=== PATIENT | male | born 1930 | race Caucasian/White ===

== ENCOUNTER 2016-03-06 20:28 | Inpatient (IN) | payer MEDICARE, BC ==
[~2016-03-06] VITALS: Ht 175.3 cm; Wt 108.8 kg
[2016-03-06] MEDS ORDERED: MORPHINE 4 MG/ML SYR ONE (22:46)
[2016-03-06] MEDS ORDERED: DUONEB INH ONE (23:03)
[2016-03-06] MEDS ORDERED: BISACODYL EC 5 MG TAB PO PRN (23:25)
[2016-03-06] MEDS ORDERED: ACETAMINOPHEN 325 MG TAB PO PRN (23:25)
[2016-03-06] MEDS ORDERED: GLUCAGON 1 MG VIAL IM PRN (23:25)
[2016-03-06] MEDS ORDERED: MAG HYDROX 30 ML UDC PO PRN (23:25)
[2016-03-06] MEDS ORDERED: ALU/MAG/SIM 30 ML UDC PO PRN (23:25)
[2016-03-06] MEDS ORDERED: BISACODYL 10 MG SUPP RECTAL PRN (23:25)
[2016-03-06] MEDS ORDERED: SALINE FLUSH 10 ML FLUSH PRN (23:25)
[2016-03-06] MEDS ORDERED: DEXTROSE 50% SYRINGE 50 ML IV PRN (23:25)
[2016-03-06] MEDS ORDERED: CEFTRIAXONE 1 GM VIAL ONE (23:35)
[2016-03-06] MEDS ORDERED: SODIUM CHLORIDE 0.9% 100 ML IV ONE (23:35)
[2016-03-06] MEDS ORDERED: Rivaroxaban 15 MG TAB PO ONE (23:40)
[2016-03-06] MEDS ORDERED: PHARMACY TO DOSE VANCOMYCIN IV SCH (23:50)
[2016-03-07] VITALS (10 sets, daily range): BP systolic 112–141; RESP 16–20; TEMP 97.3–99.5; Ht 175.3 cm; Wt 108.8 kg
[2016-03-07] MEDS: VANCOMYCIN 1,250 MG in SODIUM CHLORIDE 0.9% 250 ML IV SCH ×2 (01:37→14:04)
[2016-03-07] MEDS: SODIUM CHLORIDE 0.9% FLUSH BAG 500 ML IV SCH (01:38)
[2016-03-07] MEDS ORDERED: MISSING DOSE XX ONE ×2 (02:20→17:25)
[2016-03-07] MEDS: PIPERACIL/TAZO 3.375GM/50ML 50 ML IV SCH ×5 (04:17→23:22)
[2016-03-07] MEDS ORDERED: GLUCAGON 1 MG VIAL IM PRN (07:30)
[2016-03-07] MEDS ORDERED: DEXTROSE 50% SYRINGE 50 ML IV PRN (07:30)
[2016-03-07] MEDS: FLINTSTONES COMPLETE PO SCH (08:04)
[2016-03-07] MEDS: Finasteride 5 MG TAB PO SCH (08:04)
[2016-03-07] MEDS: LEVOTHYROXINE 0.1 MG TAB PO SCH (08:05)
[2016-03-07] MEDS: DOCUSATE SOD 100 MG CAP PO SCH ×2 (08:05→20:44)
[2016-03-07] MEDS: SALINE FLUSH 10 ML FLUSH SCH ×2 (08:07→20:45)
[2016-03-07] MEDS ORDERED: ENOXAPARIN 40 MG/0.4 ML SYR SUBQ SCH (09:00)
[2016-03-07] MEDS ORDERED: PHARMACY TO DOSE XX SCH (15:35)
[2016-03-07] MEDS ORDERED: ENOXAPARIN 100 MG/ML MDV SUBQ SCH (16:00)
[2016-03-07] MEDS ORDERED: ENOXAPARIN 100 MG/ML SYR SUBQ SCH (16:00)
[2016-03-07] MEDS ORDERED: Hydrocodone/APAP 10/325 MG TAB PO ONE (20:10)
[2016-03-07] MEDS: DOXAZOSIN 1 MG TAB PO SCH (20:44)
[2016-03-08] VITALS (8 sets, daily range): BP systolic 113–141; RESP 18–24; TEMP 97.6–98.7
[2016-03-08] MEDS: VANCOMYCIN 1,250 MG in SODIUM CHLORIDE 0.9% 250 ML IV SCH ×2 (00:56→13:22)
[2016-03-08] MEDS: SODIUM CHLORIDE 0.9% FLUSH BAG 500 ML IV SCH (05:14)
[2016-03-08] MEDS: LEVOTHYROXINE 0.1 MG TAB PO SCH (06:07)
[2016-03-08] MEDS: PIPERACIL/TAZO 3.375GM/50ML 50 ML IV SCH ×3 (06:08→18:14)
[2016-03-08] MEDS: SALINE FLUSH 10 ML FLUSH SCH ×2 (09:23→20:12)
[2016-03-08] MEDS: Finasteride 5 MG TAB PO SCH (09:24)
[2016-03-08] MEDS: FLINTSTONES COMPLETE PO SCH (09:24)
[2016-03-08] MEDS: DOCUSATE SOD 100 MG CAP PO SCH ×2 (09:25→20:11)
[2016-03-08] MEDS: ENOXAPARIN 100 MG/ML SYR SUBQ SCH ×2 (09:26→20:12)
[2016-03-08] MEDS: DOXAZOSIN 1 MG TAB PO SCH (20:10)
[2016-03-09] MEDS: PIPERACIL/TAZO 3.375GM/50ML 50 ML IV SCH ×4 (01:08→17:00)
[2016-03-09] MEDS: VANCOMYCIN 1,250 MG in SODIUM CHLORIDE 0.9% 250 ML IV SCH ×2 (01:57→12:00)
[2016-03-09 02:29] VITALS: BP_SYST 118; RESP 22; TEMP 97.5
[2016-03-09] MEDS: LEVOTHYROXINE 0.1 MG TAB PO SCH (06:40)
[2016-03-09] MEDS: SODIUM CHLORIDE 0.9% FLUSH BAG 500 ML IV SCH (06:40)
[2016-03-09 07:15] VITALS: BP_SYST 131; RESP 18; TEMP 98.1
[2016-03-09] MEDS: SALINE FLUSH 10 ML FLUSH SCH ×2 (08:02→20:59)
[2016-03-09] MEDS: FLINTSTONES COMPLETE PO SCH (08:03)
[2016-03-09] MEDS: ENOXAPARIN 100 MG/ML SYR SUBQ SCH (08:03)
[2016-03-09] MEDS: DOCUSATE SOD 100 MG CAP PO SCH ×2 (08:03→20:59)
[2016-03-09] MEDS: Finasteride 5 MG TAB PO SCH (08:03)
[2016-03-09 11:07] VITALS: BP_SYST 125; RESP 18; TEMP 97.4
[2016-03-09 15:08] VITALS: BP_SYST 127; RESP 18; TEMP 97.9
[2016-03-09 19:43] VITALS: BP_SYST 132; RESP 20; TEMP 97.6
[2016-03-09] MEDS: DOXAZOSIN 1 MG TAB PO SCH (20:59)
[2016-03-09] MEDS: AMOXICILLIN/CLAV 875 MG TAB PO SCH (20:59)
[2016-03-09 23:46] VITALS: BP_SYST 145; RESP 20; TEMP 98
[2016-03-10] VITALS (9 sets, daily range): BP systolic 130–151; RESP 18–20; TEMP 97.5–98.6
[2016-03-10] MEDS: SODIUM CHLORIDE 0.9% FLUSH BAG 500 ML IV SCH (06:00)
[2016-03-10] MEDS: LEVOTHYROXINE 0.1 MG TAB PO SCH (06:13)
[2016-03-10] MEDS: DOCUSATE SOD 100 MG CAP PO SCH ×2 (08:59→21:01)
[2016-03-10] MEDS: FLINTSTONES COMPLETE PO SCH (09:00)
[2016-03-10] MEDS: ENOXAPARIN 40 MG/0.4 ML SYR SUBQ SCH (09:00)
[2016-03-10] MEDS: Finasteride 5 MG TAB PO SCH (09:00)
[2016-03-10] MEDS: AMOXICILLIN/CLAV 875 MG TAB PO SCH ×2 (09:00→21:01)
[2016-03-10] MEDS: SALINE FLUSH 10 ML FLUSH SCH ×2 (17:03→20:12)
[2016-03-10] MEDS: DOXAZOSIN 1 MG TAB PO SCH (21:01)
[2016-03-11] VITALS (7 sets, daily range): BP systolic 123–144; RESP 16–20; TEMP 97.3–98.3
[2016-03-11] MEDS: SODIUM CHLORIDE 0.9% FLUSH BAG 500 ML IV SCH (06:00)
[2016-03-11] MEDS: LEVOTHYROXINE 0.1 MG TAB PO SCH (06:38)
[2016-03-11] MEDS: AMOXICILLIN/CLAV 875 MG TAB PO SCH (08:39)
[2016-03-11] MEDS: Finasteride 5 MG TAB PO SCH (08:39)
[2016-03-11] MEDS: FLINTSTONES COMPLETE PO SCH (08:39)
[2016-03-11] MEDS: SALINE FLUSH 10 ML FLUSH SCH (08:40)
[2016-03-11] MEDS: ENOXAPARIN 40 MG/0.4 ML SYR SUBQ SCH (08:40)
[2016-03-11] MEDS ORDERED: MISSING DOSE XX ONE (08:45)
[2016-03-11] MEDS: DOCUSATE SOD 100 MG CAP PO SCH (09:41)
== END 2016-03-11 19:00 | DRG 603 ==
LOC: ER 20:28 → ENPENDDIS 23:25 → EMR 23:25 → 3NT 03-07 01:29
PROVIDERS: ADMIT Internal Medicine; ATTEND Internal Medicine
DX: L03.116 Cellulitis of left lower limb (principal); E11.42 Type 2 diabetes mellitus with diabetic polyneuropathy; K86.1 Other chronic pancreatitis; I48.2 Chronic atrial fibrillation; J44.9 Chronic obstructive pulmonary disease, unspecified; Z79.84 Long term (current) use of oral hypoglycemic drugs; E03.9 Hypothyroidism, unspecified; K21.9 Gastro-esophageal reflux disease without esophagitis; I10 Essential (primary) hypertension; Z86.73 Personal history of transient ischemic attack (TIA), and cerebral infarction without residual deficits; M19.90 Unspecified osteoarthritis, unspecified site; H91.90 Unspecified hearing loss, unspecified ear; E78.5 Hyperlipidemia, unspecified; I87.2 Venous insufficiency (chronic) (peripheral)
CPT/HCPCS: 36415; 80048; 80053; 80202; 82947; 83605; 84550; 85025; 85652; 87040; 93971; 94640; 96374; 96375; 99223; 99232; 99233